=== PATIENT | female | born 1990 | race Caucasian/White ===

== ENCOUNTER 2019-01-24 19:48 | Emergency (ER) | payer MEDICAID ==
[~2019-01-24] VITALS: Ht 170.2 cm; Wt 90.6 kg
[~2019-01-24 19:48] MED LIST: PANT20TA2 PO
[2019-01-24] MEDS ORDERED: CEPH250S PO (19:57)
--- NOTE | 2019-01-24 19:57 | NUR ---
GIVEN [facility] CUP FOR LOBBY.
[2019-01-24 20:25] LABS: BASOPHILS # (AUTO) 0.05 x10^3/uL (0-0.1); BASOPHILS % (AUTO) 1 % (0-1); EOSINOPHILS # (AUTO) 0.16 x10^3/uL (0-0.4); EOSINOPHILS % (AUTO) 2 % (1-7); LYMPHOCYTES % (AUTO) 45 % (22-44); MD NO; MEAN CORPUSCULAR HEMOGLOBIN 28.8 pg (27.0-34.8); MEAN CORPUSCULAR HGB CONC 33.5 g/dL (32.4-35.8); MONOCYTES # (AUTO) 0.45 x10^3/uL (0.2-0.8); MONOCYTES % (AUTO) 6 % (2-9); NEUTROPHILS # (AUTO) 3.31 x10^3/uL (1.8-6.8); NEUTROPHILS % (AUTO) 46 % (42-75); PLATELET COUNT 345 x10^3/uL (130-400); RED BLOOD COUNT 5.06 x10^6/uL (3.82-5.3); RED CELL DISTRIBUTION WIDTH 12.6 % (9.6-15.2)
[2019-01-24 20:39] LABS: ALBUMIN 3.8 g/dL (3.4-5.0); ANION GAP 8 mmol/L (5-15); CALCIUM 8.6 mg/dL (8.5-10.1); CHLORIDE 109 mmol/L (98-107)
[2019-01-24 20:45] LABS: ALANINE AMINOTRANSFERASE 31 U/L (12-78); ALKALINE PHOSPHATASE 63 U/L (45-117); BILIRUBIN,TOTAL 0.8 mg/dL (0.2-1.0); CREATININE 0.91 mg/dL (0.55-1.02); TOTAL PROTEIN 7.7 g/dL (6.4-8.2)
[2019-01-24 23:29] LABS: MICROSCOPIC AUTO
--- NOTE | 2019-01-24 23:30 | NUR ---
PT BACK TO ROOM AT THIS TIME.
[2019-01-24 23:33] LABS: CULTURE INDICATED? YES
[2019-01-24] MEDS ORDERED: HYDROmorphone 2 MG/ML, 1ML ONE (23:50)
[2019-01-24] MEDS ORDERED: ONDANSETRON 2MG/ML, 2ML ONE (23:50)
--- NOTE | 2019-01-24 23:56 | NUR ---
PT STATES SHE WOULD PREFER TORADOL AND IS DECLINING DILAUDID. "ILL TAKE IT IF YOU WANT ME TO PUKE ALL NIGHT." ASKED FOR TORADOL. NOTIFIED.
--- NOTE | 2019-01-24 23:58 | NUR ---
NEED IV FOR CT
[2019-01-25] MEDS ORDERED: HYDROmorphone 1 MG/ML, 1ML AMP IVPush PRN
[2019-01-25] MEDS ORDERED: KETOROLAC 30 MG/1 ML IVPush ONE
[2019-01-25] MEDS ORDERED: KETOROLAC 30 MG/1 ML ONE
[2019-01-25] MEDS ORDERED: ONDANSETRON 2MG/ML, 2ML IVPush ONE
[2019-01-25] MEDS ORDERED: SODIUM CHLORIDE FLUSH 10ML SYR IVF ONE
[2019-01-25] MEDS ORDERED: SODIUM CHLORIDE 0.9% 1,000ML IVBOLUS ONE
[2019-01-25] MEDS ORDERED: OMNIPAQUE 350 MG/ML, 100ML BOTTLE ONE (00:25)
[2019-01-25] MEDS ORDERED: DICYCLOMINE 20 MG TABLET ONE (01:23)
[2019-01-25] MEDS ORDERED: ZIPRASIDONE 20 MG INJ IM ONE ×2 (01:23→01:30)
[2019-01-25] MEDS ORDERED: HYDROmorphone 1 MG/ML, 1ML AMP ONE (01:24)
[2019-01-25] MEDS ORDERED: DICYCLOMINE 10 MG/ML, 2ML IM ONE (01:30)
[2019-01-25] MEDS ORDERED: DICYCLOMINE 10 MG/ML, 2ML ONE (01:39)
--- NOTE | 2019-01-25 01:49 | NUR ---
given med per md order vss updated
[2019-01-25 01:50] VITALS: BP 118/81
== END 2019-01-25 02:17 | disposition home or self-care (01) ==
LOC: ED 01-25 02:00
DX: R10.84 Generalized abdominal pain (principal); R11.2 Nausea with vomiting, unspecified; J45.909 Unspecified asthma, uncomplicated
CPT/HCPCS: 36415; 74177; 80053; 81001; 83690; 84703; 85025; 87086; 96361; 96372; 96374; 96375; 99284; J0500; J1885; J2405; J3486; J7030; Q9967